=== PATIENT | male | born 1930 | race Two or more races ===

== ENCOUNTER 2017-01-04 17:04 | Emergency (ER) | payer OTHER ==
[~2017-01-04] VITALS: Ht 165.1 cm; Wt 68.1 kg
[2017-01-04 18:24] LABS: ADD MIUA? YES; BILIRUBIN NEGATIVE; BLOOD NEGATIVE; COLOR YELLOW ((YELLOW)); GLUCOSE (STRIP) NEGATIVE; KETONES NEGATIVE; LEUKOCYTES LARGE; NITRITE NEGATIVE; PROTEIN (STRIP) 30; SPECIFIC GRAVITY 1.021 (1.000-1.030); UROBILINOGEN 0.2 MG/DL (0.2-1.0)
[2017-01-04 18:36] LABS: BACTERIA RARE /HPF; EPITHELIAL CELLS RARE /HPF; MUCUS TRACE /LPF; RED BLOOD CELLS 0-5 /HPF (0-5); UCUL ADDED? NO; WHITE BLOOD CELLS 20-30 /HPF (0-5)
[2017-01-04 18:48] LABS: EOSINOPHIL COUNT 0.1 K/uL (0-0.3); HEMATOCRIT 34.9 % (38.0-50.0); IMMATURE GRANULOCYTE (%) 0.4 % (0.0-0.7); INSTRUMENT ABS NEUTROPHIL CT 9.4 K/uL; LYMPHOCYTE COUNT 0.4 K/uL (1.0-2.8); MCH 30.3 PG (29.0-34.0); MCV 91.8 FL (86-99); MEAN PLAT.VOLUME 10.3 uM^3 (9.0-12.4); MONOCYTE (%) 3.1 % (3-12); MONOCYTE COUNT 0.3 K/uL (0-0.8); NEUTROPHIL (%) 91.9 % (45-76); NEUTROPHIL COUNT 9.4 K/uL (1.8-6.4); PLATELET COUNT 215 K/uL (156-360); RBC DIS.WIDTH-SD 43.1 % (39-53); WHITE BLOOD COUNT 10.3 K/uL (4.1-10.2)
[2017-01-04 18:56] LABS: CHLORIDE 108 mEq/L (99-109); POTASSIUM 4.4 mEq/L (3.7-5.4); SODIUM 137 mEq/L (136-147)
[2017-01-04 18:58] LABS: GLUCOSE 111 mg/dL (70-99)
[2017-01-04 18:59] LABS: ANION GAP 9 MEQ/L (2-14)
[2017-01-04 19:00] LABS: TOTAL BILIRUBIN 0.7 mg/dL (0.0-1.0)
[2017-01-04 19:02] LABS: ALKALINE PHOSPHATASE 77 IU/L (3-129); GFR ESTIMATE (CALCULATED) 34 mL/min/
[2017-01-04 19:03] LABS: UREA NITROGEN (BUN) 36 mg/dL (9-23)
[2017-01-04 19:10] LABS: TROP-I INTERPRETATION NEGATIVE; TROPONIN-I < 0.01 ng/mL (0.0-0.30)
[2017-01-04] MEDS ORDERED: CEFTIN250 MG PO (20:00)
[2017-01-04 20:20] VITALS: BP 128/73
== END 2017-01-04 20:21 | disposition left against medical advice (07) ==
LOC: EME 17:04
PROVIDERS: Emergency Medicine
DX: R06.00 Dyspnea, unspecified (principal); R09.02 Hypoxemia; R00.0 Tachycardia, unspecified; N39.0 Urinary tract infection, site not specified; R79.1 Abnormal coagulation profile; Z87.891 Personal history of nicotine dependence
CPT/HCPCS: 71020; 80053; 81003; 83605; 83880; 84484; 85025; 85379; 87040; 87086; 93005; 94640; 99281; 99284; J0696; J2930; J7030; J7050